=== PATIENT | male | born 1995 | race African-American/Black ===

== ENCOUNTER 2020-08-03 12:37 | Emergency (ER) | payer SELFPAY | END 2020-08-03 13:26 | disposition home or self-care (01) | LOC: NAV ERS 12:37 | DX: M54.5 Low back pain (principal); G89.29 Other chronic pain; F17.210 Nicotine dependence, cigarettes, uncomplicated; J45.909 Unspecified asthma, uncomplicated; F90.9 Attention-deficit hyperactivity disorder, unspecified type; F31.9 Bipolar disorder, unspecified | CPT/HCPCS: 99283 ==